=== PATIENT | female | born 1955 | race Caucasian/White ===

== ENCOUNTER 2016-08-29 18:43 | Emergency (ER) | payer SELFPAY ==
[2016-08-29 18:55] VITALS: BP 135/56
[2016-08-29] MEDS ORDERED: LORazepam TAB(*) 0.5 MG PO ONE (20:01)
--- NOTE | 2016-08-29 21:19 | RAD ---
INDICATION: Neck injury COMPARISON: None TECHNIQUE: Noncontrast axial source images was performed from the skull base to the thoracic inlet. Coronal and and sagittal reformatted images were generated. FINDINGS: Vertebrae: There is no fracture or acute focal bony lesion. There is degenerative disc disease with moderate narrowing at C4-C7 there is endplate sclerosis with uncinate process spurring and anterior vertebral spur summation. Alignment: The craniocervical junction appears normal. The cervical vertebrae are normally aligned. Central Canal: There are no significant CT abnormalities of the central canal or foramina. MR imaging is a more sensitive method to evaluate the canal and foramina. Intervertebral disc spaces: The disc spaces are maintained. Brain: The visualized brain appears unremarkable. Soft tissues: There is thyroidectomy. The lung apices are clear. IMPRESSION: NO ACUTE CERVICAL SPINE FRACTURE. MULTILEVEL DEGENERATIVE DISC DISEASE. THYROIDECTOMY.
--- NOTE | 2016-08-29 21:21 | RAD ---
INDICATION: Intracranial injury COMPARISON: None TECHNIQUE: Noncontrast axial source images were acquired from the skull base to the vertex. FINDINGS: Ventricles/sulci: The ventricles and cisterns are normal in size and configuration for age. Brain parenchyma: There is no focal parenchymal finding, evidence of intracranial mass, or intracranial mass effect. Incidental note is made of bilateral basal ganglia calcifications Intracranial hemorrhage:None. Extra-axial spaces: There are no abnormal extra axial fluid collections or evidence of extra-axial mass. Calvarium: There is no calvarial fracture or other calvarial abnormality. Scalp: There is no evidence of scalp or extracalvarial soft tissue abnormality. Paranasal sinuses/mastoid: The paranasal sinuses and mastoid air cells are clear. Other: None. IMPRESSION: No acute intracranial findings.
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
== END 2016-08-29 22:19 | disposition home or self-care (01) ==
LOC: ED 18:43
DX: S16.1XXA Strain of muscle, fascia and tendon at neck level, initial encounter (principal); R51 Headache; M54.2 Cervicalgia; V49.9XXA Car occupant (driver) (passenger) injured in unspecified traffic accident, initial encounter; Y93.89 Activity, other specified
CPT/HCPCS: 70450; 72125; 99282; A9270-GY